=== PATIENT | female | born 1980 | race Caucasian/White ===

== ENCOUNTER 2018-05-26 16:21 | Outpatient (CLI) | payer MEDICAID, SELFPAY | END 2018-05-26 16:41 | PROVIDERS: PCP Nurse Practitioner Family; Visit Provider Advanced Practice Midwife | DX: N92.5 Other specified irregular menstruation (principal) | CPT/HCPCS: 36415; 84702 ==

== ENCOUNTER 2020-02-07 02:00 | Outpatient (CLI) | payer MEDICAID, SELFPAY ==
[2020-02-09 18:47] LABS: Patient Race White; SARS-CoV-2 RNA Undetected (Undetected); SARS-CoV-2 Specimen Source Nasopharynx
== END 2020-02-07 02:20 ==
PROVIDERS: PCP Nurse Practitioner Family; Visit Provider Nurse Practitioner Family
DX: Z11.59 Encounter for screening for other viral diseases (principal)
CPT/HCPCS: U0003

== ENCOUNTER 2020-02-14 02:47 | Outpatient (CLI) | payer MEDICAID, SELFPAY ==
[2020-02-14 16:52] LABS: Abs Immature Grans 0.03 10^3/uL (0.0-0.06); Absolute Basophil Count 0.04 10^3/uL (0.0-0.2); Absolute Lymphocyte Count 3.25 10^3/uL (1.2-3.4); Absolute Monocyte Count 0.47 10^3/uL (0.1-0.8); Absolute Neutrophil Count 3.09 10^3/uL (1.2-6.7); Basophils % 0.6; Eosinophils % 2.8; HGB 13.9 g/dL (11.2-15.7); Immature Grans % 0.4; Lymphocytes % 45.9; MCH 30.9 pg (27.0-33.0); MCHC 33.9 % (32.0-36.0); MCV 91.1 fL (80-95); MPV 9.4 fL (8.0-11.0); Monocytes % 6.6; Neutrophils % 43.7; Nucleated RBC 0 %; Platelet Count 276 10^3/uL (130-400); RDW 11.9 % (11.7-14.6); RDW-SD 39.9 fL; WBC 7.08 10^3/uL (4.4-10.8)
[2020-02-14 16:58] LABS: Bilirubin Negative (Negative); Blood Negative (Negative); Clarity Clear (Clear); Glucose Negative (Negative); Ketones Negative (Negative); Leukocyte Esterase Negative (Negative); Nitrite Negative (Negative); Urobilinogen 0.2 EU/dL (Up TO 0.2)
[2020-02-14 17:34] LABS: ESR 10 mm/hr (0-20)
[2020-02-14 17:53] LABS: ALT 22 U/L (14-59); AST 16 U/L (15-37); Albumin 3.9 g/dL (3.4-5.0); Alkaline Phosphatase 80 U/L (46-116); Anion Gap 8.7 mmol/L (3-11); BUN 20 mg/dL (7-18); Bilirubin, Total 0.2 mg/dL (0.2-1.0); C-Reactive Protein 0.15 mg/dL (0.0-0.3); CO2 27.3 mmol/L (21.0-32.0); CREATININE 0.73 mg/dL (0.55-1.02); Calcium 9.3 mg/dL (8.5-10.1); Chloride 104 mmol/L (98-107); Glucose 96 mg/dL (74-106); Sodium 140 mmol/L (136-145); Total Protein 7.2 g/dL (6.4-8.2); Uric Acid 4.3 mg/dL (2.6-6.0)
[2020-02-15 17:05] LABS: Rheumatoid Factor <8.6 IU/mL (<12.0)
[2020-02-16 09:32] LABS: Cyclic Citrullinated Peptide <2.5 U/mL (<5.0)
[2020-02-16 11:01] LABS: Lyme Ab w Rflx to Lyme Confirm Negative (Negative)
[2020-02-17 20:33] LABS: Anaplasma phagocytophilum Negative (Negative); B. miyamotoi PCR Negative (Negative); Babesia divergens/MO-1 Negative (Negative); Babesia duncani Negative (Negative); Babesia microti Negative (Negative); Ehrlichia chaffeensis Negative (Negative); Ehrlichia ewingii/canis Negative (Negative); Ehrlichia muris eauclairensis Negative (Negative)
== END 2020-02-14 03:07 ==
PROVIDERS: PCP Nurse Practitioner Family; Visit Provider Nurse Practitioner Family
DX: M25.562 Pain in left knee (principal); M25.561 Pain in right knee; M25.522 Pain in left elbow; M25.521 Pain in right elbow; M25.572 Pain in left ankle and joints of left foot; M25.571 Pain in right ankle and joints of right foot; M25.541 Pain in joints of right hand; M25.542 Pain in joints of left hand
CPT/HCPCS: 36415; 80053; 85652; 86200; 87798; 81003; 84550; 85025; 86140; 86431; 86618

== ENCOUNTER 2020-03-19 11:13 | Emergency (ER) | payer MEDICAID, SELFPAY ==
[2020-03-19] VITALS (32 sets, daily range): BP systolic 101–115; BP diastolic 62–81; PULSE 67–97; RESP 11–25; TEMP 36.9; O2SAT 95–100
--- NOTE | 2020-03-19 11:15 | RT.EKG_ITS ---
APPROVED REPORT Exam: Resting ECG Patient Location: E HR:80 bpm ECG Measurements Heart Rate 80 AXIS UT 137 P 67 QRSd 79 QRS 63 QT 370 T 36 QTc 427 Conclusion Sinus rhythm...normal P axis, V-rate 60- 99
--- NOTE | 2020-03-19 11:45 | DI.RAD_ITS ---
EXAM: XR PORTABLE CHEST AP CLINICAL HISTORY: chest pain TECHNIQUE: 2D digital imaging was performed. COMPARISON: No exams were available for comparison FINDINGS: MEDIASTINUM: Normal. HEART: Normal. PULMONARY VASCULATURE: Normal. LUNGS: Clear. PLEURAL SPACE: No pleural effusion or pneumothorax. BONE:Within normal limits for the patient's age. OTHER FINDINGS:Normal. IMPRESSION: No acute pulmonary findings. DATA REPOSITORY: RADIATION DOSE DELIVERED:
[2020-03-19 11:54] LABS: Abs Immature Grans 0.02 10^3/uL (0.0-0.06); Absolute Basophil Count 0.05 10^3/uL (0.0-0.2); Absolute Eosinophil Count 0.17 10^3/uL (0.0-0.7); Absolute Lymphocyte Count 2.85 10^3/uL (1.2-3.4); Absolute Neutrophil Count 4.53 10^3/uL (1.2-6.7); Basophils % 0.6; Eosinophils % 2.1; HCT 42.4 % (36.0-46.0); HGB 14.3 g/dL (11.2-15.7); Immature Grans % 0.2; Lymphocytes % 35.1; MCH 30.8 pg (27.0-33.0); MCHC 33.7 % (32.0-36.0); MCV 91.4 fL (80-95); MPV 9.3 fL (8.0-11.0); Monocytes % 6.2; Neutrophils % 55.8; Nucleated RBC 0 %; Platelet Count 305 10^3/uL (130-400); RBC 4.64 10^6/uL (3.93-5.22); RDW 12.2 % (11.7-14.6); RDW-SD 40.8 fL; WBC 8.12 10^3/uL (4.4-10.8)
[2020-03-19] MEDS: Normal Saline 1,000 ML 1000 ML IV (12:00)
[2020-03-19] MEDS: Normal Saline Flush 10 ML SYR IVP (12:00)
[2020-03-19 12:11] LABS: ALT 21 U/L (14-59); AST 15 U/L (15-37); Albumin 3.9 g/dL (3.4-5.0); Alkaline Phosphatase 80 U/L (46-116); Anion Gap 5.1 mmol/L (3-11); BUN 12 mg/dL (7-18); Bilirubin, Total 0.2 mg/dL (0.2-1.0); CO2 28.9 mmol/L (21.0-32.0); Calcium 8.7 mg/dL (8.5-10.1); Chloride 105 mmol/L (98-107); Glucose 95 mg/dL (74-106); Potassium 3.9 mmol/L (3.5-5.1); Sodium 139 mmol/L (136-145); TSH (W/Ref FT4) 2.06 uIU/mL (0.36-3.74); Total Protein 7.5 g/dL (6.4-8.2)
[2020-03-19 12:12] LABS: Troponin I < 0.05 ng/mL (<0.06)
[2020-03-19 12:21] LABS: D-Dimer 208 ng/mlFEU (<500)
[2020-03-19 13:13] LABS: Bilirubin Negative (Negative); Blood Negative (Negative); Clarity Clear (Clear); Glucose Negative (Negative); Ketones Negative (Negative); Leukocyte Esterase Negative (Negative); Nitrite Negative (Negative); Urobilinogen 0.2 EU/dL (Up TO 0.2)
--- NOTE | 2020-03-19 14:01 | ED.GENADUL_ITS ---
Discharge Plan Disposition Patient Disposition: HOME Condition: Stable Discharge Details Clinical Impression: Chest pain Primary Care Provider: Anjana Pierre ED Provider: Sunitha Belcher Home Meds and New Rx's Prescriptions: Continued geriatric multivitamin-min Elixir 10 - 45 ml PO DAILY RF: 0 Discharge Instructions Instructions: Chest Pain (ED) Additional Instructions: Please return immediately to the emergency department if you develop any new or worsening symptoms, if your condition does not improve as expected, or if you become otherwise concerned. It is extremely important that you call soon as possible to make an appointment to be seen in follow-up for this visit by your primary care doctor and also to have a stress test performed. The stress test has been ordered. Referrals: Anjana Pierre NP [Primary Care Provider] - Discharge Data Discharge Date/Time-TO BE ENTERED AT DEPARTURE: 03/19/20 16:20 Medical Decision Making Shanell Winn is a 39 y/o woman who presented to the emergency department with lightheadedness and chest pain, not currently occurring, non-exert onal/pleuritic/positional. Benign exam. Concern for dehydration, metabolic/lyte derangement, anemia, pulm embolism, other. Doubt acute coronary syndrome. Low risk for PE. Exam/hx at this time not c/w acute aortic process, sepsis, meningitis. Plan for EKG, screening labs, IVF hydration, telemetry. Will repeat EKG, trop in initial w/u neg. Pt not per nursing. Labs reviewed, normal WBC, neg trop, neg d-dimer. EKG non-diagnostic. Pt continues to feel on reassessment, no chest pain. Pt does note to me that she breas feeds 10x per 24 hour period, and may not have been drinking enough fluid lately. Repeat trop, EKG okay. Plan for d/c. Pt with low risk chest pain by HEART score. Outpt stress test ordered by me. Pt feels well, no symptoms. Has stood and walked about ED without lightheadedness. I had a lengthy discussion with Patient regarding return to emergency department precautions, home care, and importance of outpatient follow-up. Pt verbalizes understanding of the plan and is amenable. Patient discharged to home with clear plan for outpatient follow-up. All questions were answered. Disposition decision was made weighing the risks and benefits of hospitalization versus outpatient treatment, the risk for further decompensation, and the patient's wishes. Medical Records Medical records reviewed: Yes I reviewed the patient's medical records. Imaging Data Radiologic Study: Attestation: I personally reviewed and interpreted this imaging study as follows: Radiologist's impression: EXAM: XR PORTABLE CHEST AP CLINICAL HISTORY: chest pain TECHNIQUE: 2D digital imaging was performed. COMPARISON: No exams were available for comparison FINDINGS: MEDIASTINUM: Normal. HEART: Normal. PULMONARY VASCULATURE: Normal. LUNGS: Clear. PLEURAL SPACE: No pleural effusion or pneumothorax. BONE:Within normal limits for the patient's age. OTHER FINDINGS:Normal. IMPRESSION: No acute pulmonary findings. Lab Data Lab results reviewed: Yes I reviewed the patient's lab results. Labs: Laboratory Tests Range/Units 03/19/20 03/19/20 03/19/20 11:25 11:25 11:25 WBC (4.4-10.8) 10^3/uL 8.12 RBC (3.93-5.22) 10^6/uL 4.64 Hgb (11.2-15.7) g/dL 14.3 Hct (36.0-46.0) % 42.4 MCV (80-95) fL 91.4 MCH (27.0-33.0) pg 30.8 MCHC (32.0-36.0) % 33.7 RDW (11.7-14.6) % 12.2 Plt Count (130-400) 10^3/uL 305 MPV (8.0-11.0) fL 9.3 Immature Gran % 0.2 Neutrophils % 55.8 Lymphocytes % 35.1 Monocytes % 6.2 Eosinophils % 2.1 Basophils % 0.6 Nucleated RBC % % 0 Absolute Neutrophils (1.2-6.7) 10^3/uL 4.53 Absolute Lymphocytes (1.2-3.4) 10^3/uL 2.85 Absolute Monocytes (0.1-0.8) 10^3/uL 0.50 Absolute Eosinophils (0.0-0.7) 10^3/uL 0.17 Absolute Basophils (0.0-0.2) 10^3/uL 0.05 D-Dimer (<500) ng/mlFEU 208 Sodium (136-145) mmol/L 139 Potassium (3.5-5.1) mmol/L 3.9 Chloride (98-107) mmol/L 105 Carbon Dioxide (21.0-32.0) mmol/L 28.9 Anion Gap (3-11) mmol/L 5.1 BUN (7-18) mg/dL 12 Creatinine (0.55-1.02) mg/dL 0.70 Estimated GFR/1.73 m2 (mL/min/1.73m2) >= 60.00 Glucose (74-106) mg/dL 95 Calcium (8.5-10.1) mg/dL 8.7 Total Bilirubin (0.2-1.0) mg/dL 0.2 AST (15-37) U/L 15 ALT (14-59) U/L 21 Alkaline Phosphatase (46-116) U/L 80 Troponin I (<0.06) ng/mL < 0.05 Total Protein (6.4-8.2) g/dL 7.5 Albumin (3.4-5.0) g/dL 3.9 TSH (0.36-3.74) uIU/mL 2.06 Urine Color (Yellow) Urine Clarity (Clear) Urine pH (5-8) Ur Specific Clements (1.005-1.025) Urine Protein (Negative) mg/dL Urine Ketones (Negative) mg/dL Urine Blood (Negative) Urine Nitrite (Negative) Urine Bilirubin (Negative) Urine Urobilinogen (Up TO 0.2) EU/dL Ur Leukocyte Esterase (Negative) Urine Glucose (Negative) mg/dL Range/Units 03/19/20 03/19/20 12:59 14:39 WBC (4.4-10.8) 10^3/uL RBC (3.93-5.22) 10^6/uL Hgb (11.2-15.7) g/dL Hct (36.0-46.0) % MCV (80-95) fL MCH (27.0-33.0) pg MCHC (32.0-36.0) % RDW (11.7-14.6) % Plt Count (130-400) 10^3/uL MPV (8.0-11.0) fL Immature Gran % Neutrophils % Lymphocytes % Monocytes % Eosinophils % Basophils % Nucleated RBC % % Absolute Neutrophils (1.2-6.7) 10^3/uL Absolute Lymphocytes (1.2-3.4) 10^3/uL Absolute Monocytes (0.1-0.8) 10^3/uL Absolute Eosinophils (0.0-0.7) 10^3/uL Absolute Basophils (0.0-0.2) 10^3/uL D-Dimer (<500) ng/mlFEU Sodium (136-145) mmol/L Potassium (3.5-5.1) mmol/L Chloride (98-107) mmol/L Carbon Dioxide (21.0-32.0) mmol/L Anion Gap (3-11) mmol/L BUN (7-18) mg/dL Creatinine (0.55-1.02) mg/dL Estimated GFR/1.73 m2 (mL/min/1.73m2) Glucose (74-106) mg/dL Calcium (8.5-10.1) mg/dL Total Bilirubin (0.2-1.0) mg/dL AST (15-37) U/L ALT (14-59) U/L Alkaline Phosphatase (46-116) U/L Troponin I (<0.06) ng/mL < 0.05 Total Protein (6.4-8.2) g/dL Albumin (3.4-5.0) g/dL TSH (0.36-3.74) uIU/mL Urine Color (Yellow) Yellow Urine Clarity (Clear) Clear Urine pH (5-8) 8.0 Ur Specific Clements (1.005-1.025) 1.020 Urine Protein (Negative) mg/dL Negative Urine Ketones (Negative) mg/dL Negative Urine Blood (Negative) Negative Urine Nitrite (Negative) Negative Urine Bilirubin (Negative) Negative Urine Urobilinogen (Up TO 0.2) EU/dL 0.2 Ur Leukocyte Esterase (Negative) Negative Urine Glucose (Negative) mg/dL Negative ECG Data Attestation: I personally reviewed and interpreted this ECG (s) as follows: Interpretation: EKG shows sinus rhythm at 80, normal axis, no acute ischemic changes, nondiagnostic EKG Repeat EKG shows sinus rhythm at 74, normal axis, no major change from prior, nondiagnostic EKG HPI General Mode of arrival: ambulatory . Date/Time Provider Initiated Documentation: 03/19/20 11:15 . Limitations to Documentation: no limitations . Information obtained by: patient, RN notes reviewed and old records reviewed . HPI Narrative: Shanell Winn is a 39-year-old woman with history of IBS presenting to emergency department with lightheadedness and chest pain. Patient reports that over the past few days she has noticed feeling intermittently lightheaded as if she would faint. Patient reports that this has been occurring while seated as well as with standing, although she reports that lightheadedness has been worse while standing and she has had to sit several times because of it. Does seem to improve with sitting/lying down. Patient reports that this morning she developed retrosternal chest pain that she describes as sometimes dull, sometimes sharp. Has been intermittent and this morning. Patient reports that chest pain does not seem to have modifiers, unchanged with eating, exertion, deep breathing. Does not radiate. Patient reports that pain lasted for a few minutes and then remit. She denies any current pain or other current symptoms. She denies fevers, shortness of breath, cough, numbness, weakness, vomiting, diarrhea, rash. She reports that she has been eating and drinking as usual. States that she is currently breast-feeding her [id number] child. Related Data Home Medications Medication Instructions Recorded Confirmed geriatric multivitamin-min 10 - 45 ml PO DAILY 03/19/20 03/19/20 Allergies Allergy/AdvReac Type Severity Reaction Status Date / Time morphine Allergy Unknown Hives Verified 02/03/20 16:45 penicillin V Allergy Unknown Difficulty Verified 02/03/20 16:45 Breathing, Pruritis wheat Allergy Unknown Verified 02/03/20 16:45 Dust Allergy Unknown Uncoded 07/01/19 08:53 Raw Sugar Allergy Unknown Uncoded 07/01/19 08:53 General Stated Complaint: Chest Pain LONG: 2 Review of Systems Narrative: Constitutional: denies fevers Eyes: denies eye pain ENT: denies ear pain, dental pain, sore throat Cardiovascular: denies edema, reports chest pain, lightheadedness Respiratory: denies SOB, cough GI: denies abdominal pain, vomiting, diarrhea : denies flank pain MSK: denies back pain, neck pain, arthralgias, myalgias Skin: denies rash Neuro: denies headaches, numbness, weakness [facility] Medical History (Updated 03/19/20 @ 15:54 by Sunitha Belcher MD) Fracture of glenoid process of right scapula (~05/2018) IBS (irritable bowel syndrome) Colonoscopy 2003 - WNL Colonoscopy was scheduled for 2012, pt never did it, but hasn't had flare of sx since then Diarrhea predominant Right scapula fracture (07/2018) Surgical History H/O sinus surgery 2000, to remove polyps Family History Brother IBS (irritable bowel syndrome) Father Hypertension Hypercholesteremia Maternal Grandfather Heart disease Maternal Grandmother IBS (irritable bowel syndrome) Osteoporosis Mother IBS (irritable bowel syndrome) Osteoarthritis Social History Smoking/Tobacco Use Status: Never Smoking risk assessment performed?: Yes Alcohol Intake: never Drug use: Never Substance use type: does not use Household members: spouse and children Number of Children: 2 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 Pets and animals: No Sexually active: Yes Current gender identity: female What type of physical activity do you participate in: aerobic and regular exercise Frequency: 3-4 times per week Seatbelt use: always Drive intox or ride w/intox hammer driver: No Working smoke detector in home: Yes Do you feel safe at home: Yes Do you feel safe in your relationship?: Yes Exam Narrative Exam Narrative: Constitutional: well and [id number], pleasant, conversing normally HENT: head atraumatic/normocephalic/normal inspection, mucous membranes moist Eyes: conjunctiva normal, sclera normal, pupils 3mm b/l Neck: no stridor, normal ROM, trachea midline Chest: normal inspection Resp: normal work of breathing, LCTAB Cardio: normal rate, normal rhythm, no murmur appreciated GI: abdomen soft, non-tender, non-distended Back: normal inspection, no rash Skin: warm, dry, normal color, no rash Neuro: alert, not altered, grossly non-focal, normal tone Ext: no edema Psych: normal mood, normal affect, normal behavior Course Vital Signs Vital signs: Vital Signs Temperature 36.9 C 03/19/20 11:18 Pulse 70 03/19/20 11:18 Respiratory Rate 11 L 03/19/20 11:18 Blood Pressure 115/81 03/19/20 11:18 Pulse Oximetry 98 03/19/20 11:18 Temperature 36.9 C 03/19/20 11:18 Temperature Source Temporal Artery Scan 03/19/20 11:18 Pulse 75 03/19/20 12:46 Pulse 81 03/19/20 12:50 Respiratory Rate 22 03/19/20 12:50 Respiratory Effort Non-Labored 03/19/20 11:27 Respiratory Depth Normal 03/19/20 11:27 Respiratory Pattern Normal 03/19/20 11:27 Blood Pressure 103/68 03/19/20 12:46 Blood Pressure Mean 76 03/19/20 12:46 Blood Pressure Position Sitting 03/19/20 11:18 Pulse Oximetry 98 03/19/20 12:50 Oxygen Delivery Method Room Air 03/19/20 11:18 Oxygen Flow Rate 0 03/19/20 11:18 Pain Level 3 03/19/20 11:27 Lab/Test Results Lab/Test Results: Laboratory Tests Range/Units 03/19/20 03/19/20 03/19/20 11:25 11:25 11:25 WBC (4.4-10.8) 10^3/uL 8.12 RBC (3.93-5.22) 10^6/uL 4.64 Hgb (11.2-15.7) g/dL 14.3 Hct (36.0-46.0) % 42.4 MCV (80-95) fL 91.4 MCH (27.0-33.0) pg 30.8 MCHC (32.0-36.0) % 33.7 RDW (11.7-14.6) % 12.2 Plt Count (130-400) 10^3/uL 305 MPV (8.0-11.0) fL 9.3 Immature Gran % 0.2 Neutrophils % 55.8 Lymphocytes % 35.1 Monocytes % 6.2 Eosinophils % 2.1 Basophils % 0.6 Nucleated RBC % % 0 Absolute Neutrophils (1.2-6.7) 10^3/uL 4.53 Absolute Lymphocytes (1.2-3.4) 10^3/uL 2.85 Absolute Monocytes (0.1-0.8) 10^3/uL 0.50 Absolute Eosinophils (0.0-0.7) 10^3/uL 0.17 Absolute Basophils (0.0-0.2) 10^3/uL 0.05 D-Dimer (<500) ng/mlFEU 208 Sodium (136-145) mmol/L 139 Potassium (3.5-5.1) mmol/L 3.9 Chloride (98-107) mmol/L 105 Carbon Dioxide (21.0-32.0) mmol/L 28.9 Anion Gap (3-11) mmol/L 5.1 BUN (7-18) mg/dL 12 Creatinine (0.55-1.02) mg/dL 0.70 Estimated GFR/1.73 m2 (mL/min/1.73m2) >= 60.00 Glucose (74-106) mg/dL 95 Calcium (8.5-10.1) mg/dL 8.7 Total Bilirubin (0.2-1.0) mg/dL 0.2 AST (15-37) U/L 15 ALT (14-59) U/L 21 Alkaline Phosphatase (46-116) U/L 80 Troponin I (<0.06) ng/mL < 0.05 Total Protein (6.4-8.2) g/dL 7.5 Albumin (3.4-5.0) g/dL 3.9 TSH (0.36-3.74) uIU/mL 2.06 Urine Color (Yellow) Urine Clarity (Clear) Urine pH (5-8) Ur Specific Clements (1.005-1.025) Urine Protein (Negative) mg/dL Urine Ketones (Negative) mg/dL Urine Blood (Negative) Urine Nitrite (Negative) Urine Bilirubin (Negative) Urine Urobilinogen (Up TO 0.2) EU/dL Ur Leukocyte Esterase (Negative) Urine Glucose (Negative) mg/dL Range/Units 03/19/20 12:59 WBC (4.4-10.8) 10^3/uL RBC (3.93-5.22) 10^6/uL Hgb (11.2-15.7) g/dL Hct (36.0-46.0) % MCV (80-95) fL MCH (27.0-33.0) pg MCHC (32.0-36.0) % RDW (11.7-14.6) % Plt Count (130-400) 10^3/uL MPV (8.0-11.0) fL Immature Gran % Neutrophils % Lymphocytes % Monocytes % Eosinophils % Basophils % Nucleated RBC % % Absolute Neutrophils (1.2-6.7) 10^3/uL Absolute Lymphocytes (1.2-3.4) 10^3/uL Absolute Monocytes (0.1-0.8) 10^3/uL Absolute Eosinophils (0.0-0.7) 10^3/uL Absolute Basophils (0.0-0.2) 10^3/uL D-Dimer (<500) ng/mlFEU Sodium (136-145) mmol/L Potassium (3.5-5.1) mmol/L Chloride (98-107) mmol/L Carbon Dioxide (21.0-32.0) mmol/L Anion Gap (3-11) mmol/L BUN (7-18) mg/dL Creatinine (0.55-1.02) mg/dL Estimated GFR/1.73 m2 (mL/min/1.73m2) Glucose (74-106) mg/dL Calcium (8.5-10.1) mg/dL Total Bilirubin (0.2-1.0) mg/dL AST (15-37) U/L ALT (14-59) U/L Alkaline Phosphatase (46-116) U/L Troponin I (<0.06) ng/mL Total Protein (6.4-8.2) g/dL Albumin (3.4-5.0) g/dL TSH (0.36-3.74) uIU/mL Urine Color (Yellow) Yellow Urine Clarity (Clear) Clear Urine pH (5-8) 8.0 Ur Specific Clements (1.005-1.025) 1.020 Urine Protein (Negative) mg/dL Negative Urine Ketones (Negative) mg/dL Negative Urine Blood (Negative) Negative Urine Nitrite (Negative) Negative Urine Bilirubin (Negative) Negative Urine Urobilinogen (Up TO 0.2) EU/dL 0.2 Ur Leukocyte Esterase (Negative) Negative Urine Glucose (Negative) mg/dL Negative POC- Test(urine) Negative
--- NOTE | 2020-03-19 14:15 | RT.EKG_ITS ---
APPROVED REPORT Exam: Resting ECG Patient Location: E HR:74 bpm ECG Measurements Heart Rate 74 AXIS KS 144 P 37 QRSd 80 QRS 63 QT 376 T 29 QTc 417 Conclusion Sinus rhythm...normal P axis, V-rate 60- 99 no STEMI, non-diagnostic EKG
[2020-03-19 15:46] LABS: Troponin I < 0.05 ng/mL (<0.06)
== END 2020-03-19 16:20 | disposition home or self-care (01) ==
PROVIDERS: Emergency Provider Student in an Organized Health Care Education/Training Program; PCP Nurse Practitioner Family
DX: R42 Dizziness and giddiness (principal); R07.89 Other chest pain
CPT/HCPCS: 36415; 36416; 80053; 81025; 82962; 93005; 96360; 99285; 71045; 81003; 84443; 84484; 85025; 85379; 93010; 93225; 99284

== ENCOUNTER 2020-03-28 13:01 | Outpatient (CLI) | payer MEDICAID, SELFPAY ==
--- NOTE | 2020-03-28 15:14 | W.HOLTRPT ---
Date of service: 03/28/20 Time of Service: 15:15 Holter Monitor Report Referring Provider:: Anjana Pierre Indications:: Palpitations Holter Monitor Note: This is a 48-hour Holter monitor Rhythm throughout was sinus. Average heart rate was 90. Minimum heart rate was 60, maximum 131 No significant dysrhythmias were recorded. There was 1 isolated PVC, 4 atrial premature beats There was no atrial fibrillation, high-grade AV block or pauses greater than 3 seconds Patient symptoms corresponded to sinus rhythm
== END 2020-03-28 13:21 ==
PROVIDERS: PCP Nurse Practitioner Family; Visit Provider Nurse Practitioner Family
DX: R00.2 Palpitations (principal); I49.3 Ventricular premature depolarization; I49.1 Atrial premature depolarization
CPT/HCPCS: 93226

== ENCOUNTER 2021-12-20 01:36 | Outpatient (CLI) | payer MEDICAID, SELFPAY ==
--- OUTSIDE RECORDS SUMMARY | 2021-12-20 01:39 | XMS_ITS | Clinical Summary ---
:1980 Author Organization [facility] [place] [address] Care Team Providers Name Role Phone Anjana Pierre ANGELA Primary Care Provider Allergies Active Allergy Reactions Severity Noted Date Comments Morphine Sulfate Medium CIS - Hives Penicillins Anaphylaxis High 11/16/2012 Sugars, Metabolically Other (See Comments) 07/18/2016 Headaches, sore Active throat, muscle aches Wheat Bran Low CIS - Allergic Rhinitis Wheat Flour Low CIS - Allergic Rhinitis Wheat Germ Oil Low CIS - Allergi c Rhinitis Wheat Starch Low CIS - Allergic Rhinitis Medications Medication Sig Dispensed Refills Start Date End Date Status Ibuprofen 200 mg Cap 0 06/26/2009 Active PNV CMB#95/FERROUS Take 1 tablet by 0 Active FUMARATE/FA ( mouth daily. MULTIVITAMINS ORAL) ASCORBATE CALCIUM Take by mouth as 0 Active (VITAMIN C ORAL) needed. acetaminophen (TYLENOL) Take 1,000 mg by 0 Active 500 mg tablet mouth as needed. Reported on 07/18/2016 ELDERBERRY FRUIT ORAL Take by mouth. 0 Active Active Problems Problem Noted Date Diarrhea 11/16/2012 Immunizations Name Administration Dates Next Due Hepatitis A Vaccine, unspecified formulation 06/26/2009 Tdap Vaccine 06/26/2009 Social History Tobacco Use Types Packs/Day Years Used Date Never Smoker Sex Assigned at Date Recorded Not on file Last Filed Vital Signs Vital Sign Reading Time Taken Comments Blood Pressure 114/78 07/18/2016 2:49 PM EST Pulse 106 11/16/2012 8:13 AM EDT Temperature - - Respiratory Rate - - Oxygen Saturation - - Inhaled Oxygen Concentration - - Weight 67.8 kg (149 lb 8 oz) 07/18/2016 2:49 PM EST Height 157.5 cm (5' 2) 11/16/2012 8:13 AM EDT Body Mass Index 27.34 11/16/2012 8:13 AM EDT Plan of Treatment Health Maintenance Due Date Last Done Comments Covid-19 Vaccine (#1) 1986 HIV screen 12/30/1999 Hepatitis C Screening 12/30/1999 HPV test 12/30/2011 PAP Smear 12/30/2011 Tetanus vaccine 06/26/2019 06/26/2009 Influenza (Flu) vaccine (1 of 1 - Influenza standard 01/16/2022 series) Tdap adult Completed 06/26/2009 Insurance Payer Benefit Plan / Subscriber ID Effective Dates Phone Addre ss Type Group [place]ICAID [place] [id number] 2021-Prese [phone] [address] [facility] [address] [place], [place] [phone] Care Teams Burlap Spreader Relationship Specialty Start Date End Date Anjana Pierre, SUPPLIER SPECIALIST PCP - General Family Medicine 01/26/21 [address] [place] [address]
--- OUTSIDE RECORDS SUMMARY | 2021-12-20 01:39 | XMS_ITS | Encounter Summary ---
:1980 [place] [address] Care Team Providers Name Role Phone Vlad Garcia MD Primary Care Provider Encounter Details Date Type Department Care Team Description 08/01/2016 Telephone Obstetrics and Gynecology [place] [address] Social History Tobacco Use Types Packs/Day Years Used Date Never Smoker Sex Assigned at Date Recorded Not on file documented as of this encounter Miscellaneous Notes Telephone Encounter - Sienna Reddy RN - 08/06/2016 3:43 PM EDT Opened in error documented in this encounter Plan of Treatment Not on filedocumented as of this encounter Visit Diagnoses Not on filedocumented in this encounter Care Teams Bow Rehairer Relationship Specialty Start Date End Date Vlad Garcia MD PCP - General 09/21/12 01/25/21 documented as of this encounter
--- OUTSIDE RECORDS SUMMARY | 2021-12-20 01:40 | XMS_ITS | Encounter Summary ---
:1980 Author Organization [facility] Address [address] [place] [address] Care Team Providers Name Role Phone Md JEREMIAH Oconnell Primary Care Provider Unavailable Encounter Details Date Type Department Care Team Description 03/20/2010 Results Only [facility] Chanelle Scott PA Laboratory Services - [address] [facility] ,[facility] [address] [address] [phone] Social History Tobacco Use Types Packs/Day Years Used Date Never Assessed Sex Assigned at Date Recorded Not on file documented as of this encounter Plan of Treatment Not on filedocumented as of this encounter Procedures Procedure Name Priority Date/Time Associated Diagnosis Comme nts CYTOPATHOLOGY Routine 03/20/2010 0:00 EDT Results for this procedure are i n the results section . documented in this encounter Results CYTOPATHOLOGY (03/20/2010 0:00 EDT) Pathology Report: CYTOPATHOLOGY REPORT ? [facility] ? LAB Reports generated via [employer] interface contain original data; ? however they are lacking the format of the original report. ? Caution should be taken when reading/interpreting unformatted reports. ? Name: ? KWABENASHANELL ? Accession #: ? [id number] ? : ? 1980 (Age: 29) ??F ?Collect Date: ? 03/20/2010 ? Location: ? [facility] ? Receive Date: ? 03/21/2010 ? Provider: ?JANETH ROSA ? Copy to: ? Specimen/Source: ? Pap Test, Endocervix, ThinPrep Imaging System with ? manual evaluation ? Last Menstrual Period: ? 02/17/2010 ? Other: ? Additional clinical informat ion: B[facility] [employer] clinical and treatment history: uterine ? polydrend ? SPECIMEN ADEQUACY ? Satisfactory for Eval uation ? - transformation zone compon ent present ? GENERAL CATEGORIZATION ? Negative for Intraepi thelial Lesion or Malignancy ? Document reviewed and electr onically signed by: ? Lynan Tone, CT(ASCP) ? Report Date: ??11/08/ 2010 10:52 ? End of Report ? Specimen Performing Organization Address City/State/[facility] Code Phon e Number [facility] [address] [place] [address] SERVICES [facility] [address] [place] [address] documented in this encounter Visit Diagnoses Not on filedocumented in this encounter Care Teams Window Glazier Helper Relationship Specialty Start Date End Date Md Oconnell MD PCP - General 03/21/10 documented as of this encounter
--- OUTSIDE RECORDS SUMMARY | 2021-12-20 01:40 | XMS_ITS | Clinical Summary ---
:1980 Author Organization [facility] Address [address] [place] [address] Care Team Providers Name Role Phone Md JEREMIAH Oconnell Primary Care Provider Unavailable Social History Tobacco Use Types Packs/Day Years Used Date Never Assessed Sex Assigned at Date Recorded Not on file Plan of Treatment Not on file Care Teams Engine Monitor Relationship Specialty Start Date End Date Md Oconnell MD PCP - General 03/21/10
--- OUTSIDE RECORDS SUMMARY | 2021-12-20 01:40 | XMS_ITS | Encounter Summary ---
:1980 Author Organization [facility] Address [facility] [address] [place] [address] Care Team Providers Name Role Phone Vlad Garcia MD Primary Care Provider Reason for Referral (Routine) - Specialty Diagnoses / Procedures Referred By Contact Refer red To Contact Diagnoses History of recurrent miscarriages, not currently Urszula Bearden MD Procedures Chromosome Analysis, Congenital [facility] [place] [address] Referral ID Status Reason Start Date Expiration Date Visits V isits Requested Authorized [id number] 07/18/2016 07/18/2017 1 1 Reason for Visit Reason Comments Establish Care prev preg loss Consultation (Routine) - Closed Specialty Diagnoses / Procedures Referred By Contact Refer red To Contact Genetics / Obstetrics Diagnoses HX OF LOSS Scott Saravia MD [facility] [address] [employer] 5l and Gynecology Procedures GENETIC CONSULT [address] [place] [address] [place] [address] Phone: Fax: Referral ID Status Reason Start Date Expiration Date Visits Requ ested Visits Authorized [id number] Closed 06/23/2016 06/23/2017 1 1 Encounter Details Date Type Department Care Team Description 07/18/2016 Office Visit Obstetrics and Urszula Bearden MD History of recurrent Gynecology at [facility] miscarriages, not [facility] [address] OBSTETRICS & [place], [place] GYNECOLOGY [address] [place] [address] [phone] Social History Tobacco Use Types Packs/Day Years Used Date Never Smoker Sex Assigned at Date Recorded Not on file documented as of this encounter Last Filed Vital Signs Vital Sign Reading Time Taken Comments Blood Pressure 114/78 07/18/2016 2:49 PM EST Pulse - - Temperature - - Respiratory Rate - - Oxygen Saturation - - Inhaled Oxygen Concentration - - Weight 67.8 kg (149 lb 8 oz) 07/18/2016 2:49 PM EST Height - - Body Mass Index 27.34 11/16/2012 8:13 AM EDT documented in this encounter Progress Notes Urszula Bearden MD - 07/18/2016 3:00 PM EST Sister with 2 miscarriages Maternal Medicine Consult Note Shanell Winn is a 35 y.o. 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 The patient has had 2 term pregnancies followed by 3 first trimester miscarriages and a 17 week miscarriage. 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 Years ago she had a hysteroscopy for endometrial polyps. The 17 week loss was on 08/12/15. She had had painful contractions and vaginal bleeding. The fetus apparently looked grossly normal. An autopsy was not offered. She did not have a karyotype with any of the other miscarriages. Record Review No additional issues Past Medical History: Diagnosis Date ??? IBS (irritable bowel syndrome) unsure if there may be a compenent of inflammatory bowel disease Past Surgical History: Procedure Laterality Date ??? HYSTEROSCOPY 2008 endometrial polyps ??? ORTHOPEDIC SURGERY Right remove cyst from ankle ??? SINUS SURGERY Obstetric History T2 TAB0 SAB4 E0 M0 L4 # Outcome Date GA Lbr Ryan/2nd Weight Sex Delivery Anes PTL Lv 6 SAB 05/12/16 4w0d 5 08/15/15 17w0d 4 2015 4w0d 3 2014 7w0d 2 Term 04/11/13 40w0d 2.948 kg (6 lb 8 oz) F Vag-Spont Y 1 Term 02/06/11 42w0d 3.572 kg (7 lb 14 oz) M Vag-Spont Y A family history was obtained. A sister had several miscarriages. There is no other history of structural abnormalities, inheritable disease, learning disability,intellectual disability, epilepsy, or repetitive loss. The ethnic backgrounds do not suggest a significantly increased genetic risk. No member of her family has had venous thrombosis. Social: No illicit substance use or alcohol No tobacco use Current Outpatient Prescriptions Medication Sig Dispense Refill ??? ELDERBERRY FRUIT ORAL Take by mouth. ??? PNV CMB#95/FERROUS FUMARATE/FA ( MULTIVITAMINS ORAL) Take 1 tablet by mouth daily. ??? ASCORBATE CALCIUM (VITAMIN C ORAL) Take by mouth as needed. ??? acetaminophen (TYLENOL) 500 mg tablet Take 1,000 mg by mouth as needed. Reported on 07/18/2016 ??? Ibuprofen 200 mg Cap (Patient not taking: No sig reported) No current facility-administered medications for this visit. Allergies Allergen Reactions ??? Penicillins Anaphylaxis ??? Morphine Sulfate CIS - Hives ??? Sugars, Metabolically Active Other (See Comments) Headaches, sore throat, muscle aches ??? Wheat Bran CIS - Allergic Rhinitis ??? Wheat Flour CIS - Allergic Rhinitis ??? Wheat Germ Oil CIS - Allergic Rhinitis ??? Wheat Starch CIS - Allergic Rhinitis Review of Systems Constitutional: generally well Physical Exam Vitals: 07/18/16 1449 BP: 114/78 General: alert, well appearing, in no apparent distress HEENT: normocephalic, atraumatic Neurologic:alert, oriented, normal speech Psychiatric: affect is appropriate. Assessment and Recommendations: 35 y.o. at with unexplained repetitive miscarriage. She has an inherited thrombophilia, but this is unlikely to be the etiology. She has had a hysteroscopy which presumably would have excluded a mullerian abnormality. She seems not to have a contributing medical condition. I recommended that we obtain testing for anti phopholipid antibody syndrome (lupus anticoagulant, anticardiolipin antibodies), TSH, HbA1c, TSH, thyroid peroxidase antibodies and a maternal karyotype. If all this is normal,we should do the father of the babies karyotype. I asked her to obtain the operative note from her hy steroscopy. If this cannot be found, a sonohysterogram is indicated. Prothrombin gene mutation. She will not need thromboprophylaxis during . After delivery herman need Lovenox for 6 weeks if she has an additional risk factor: bedrest and section. I appreciate the opportunity to be involved in this patient's care and am available if further questions should arise. Urszula Bearden MD 07/20/2016 Cc: Scott Saravia MD This was a 30 minute encounter 25 minutes of which was face to face consultation regarding her history and need for further evaluation documented in this encounter Plan of Treatment Not on filedocumented as of this encounter Procedures Procedure Name Priority Date/Time Associated Comments Diagnosis LUPUS ANTICOAGULANT Routine 07/18/2016 4:00 PM History of Re sults for this EST recurrent procedure are i n miscarriages, not the result s currently section. THYROID PEROXIDASE Routine 07/18/2016 4:00 PM History of Res ults for this ANTIBODY EST recurrent procedure are i n miscarriages, not the result s currently section. CARDIOLIPIN ANTIBODY Routine 07/18/2016 4:00 PM History of R esults for this SCREEN EST recurrent procedure are i n miscarriages, not the result s currently section. TSH Routine 07/18/2016 4:00 PM History of Results f or this EST recurrent procedure are i n miscarriages, not the result s currently section. HEMOGLOBIN A1C Routine 07/18/2016 4:00 PM History of Results for this EST recurrent procedure are i n miscarriages, not the result s currently section. CHROMO REPORT Routine 07/18/2016 3:50 PM History of Results for this CONGENITAL EST recurrent procedure are i n miscarriages, not the result s currently section. CHROMOSOME ANALYSIS, Routine 07/18/2016 3:50 PM History of CONGENITAL EST recurrent miscarriages, not currently documented in this encounter Results Cardiolipin Antibody Screen (07/18/2016 4:00 PM EST) P athologist Signature Cardiolipin IgG <23 <=22 GPL [facility](s) [facility] Comment: Ranges ? GPL ------- ? ------ Normal ?<23 Low Positive ? 23-35 Moderate Positive ?36 -50 High Positive ? >5 0 Cardiolipin IgM <11 <=10 MPL unit(s) [facility] Comment: Ranges ?MPL ----- ?----- Normal ?<11 Low Positive ? 11-20 Moderate Positive ?21 -30 High Positive ? >3 0 Specimen Anatomical Collection Method Collection Time Receive d Time (Source) Location / / Volume Laterality Blood specimen 07/18/2016 4:00 PM 017 7:40 (specimen) EST AM EST Resulting Agency Comment Spec In Lab Urszula Bearden MD IMMUNOLOGY ORDERABLES Performing Organization Address City/[facility] [place] [address] Lupus Anticoagulant (07/18/2016 4:00 PM EST) P athologist Signature Lupus Anticoag Neg Neg [facility] Specimen Anatomical Collection Method Collection Time Receive d Time (Source) Location / / Volume Laterality Blood specimen 07/18/2016 4:00 PM 017 4:10 (specimen) EST PM EST Resulting Agency Comment Spec In Lab Urszula Bearden MD HEMATOLOGY ORDERABLES Performing Organization Address City/[facility] [place] [address] TSH (07/18/2016 4:00 PM EST) athologist Signature TSH 2.50 0.27 - 4.20 [facility] Specimen Anatomical Collection Method Collection Time Receive d Time (Source) Location / / Volume Laterality Blood specimen 07/18/2016 4:00 PM 017 4:10 (specimen) EST PM EST Resulting Agency Comment Spec In Lab Urszula Bearden MD CHEMISTRY ORDERABLES Performing Organization Address City/[facility]/ZIP [place] [address] Thyroid peroxidase antibody (07/18/2016 4:00 PM EST) athologist Signature Thyroperox Ab <10 <=34 IU/mL [facility] Specimen Anatomical Collection Method Collection Time Receive d Time (Source) Location / / Volume Laterality Blood specimen 07/18/2016 4:00 PM 017 7:40 (specimen) EST AM EST Resulting Agency Comment Spec In Lab Urszula Bearden MD IMMUNOLOGY ORDERABLES Performing Organization Address City/[facility] [place] [address] Hemoglobin A1c (07/18/2016 4:00 PM EST) athologist Signature Hemoglobin A1C 5.0 4.3 - 5.6 [facility] Comment: Reference Range: 4.3 - 5.6% 5.7 - 6.4% - Increased Risk of Developin g Diabetes Mellitus >=6.5% - Consistent with diagnosis of Di abetes Mellitus In the absence of hyperglycemia (i.e. pl asma glucose > 200 mg/dL) or classic symptoms of hyperglycemia a repeat measu rement of HbA1c should be performed on a separate sample to confirm the diagnos is. Diagnosis and Classification of Diabetes Mellitus, Diabetes Care 2013; 36: Suppl. 1, N27-59 Est Avg Gluc 97 mg/dL [facility] Comment: eAG equivalents for HbA1c percentages: HbA1c(%) ?eAG(mg/dL) 6.0 ?126 6.5 ?140 7.0 ?154 7.5 ?169 8.0 ?183 8.5 ?197 9.0 ?212 9.5 ?226 10.0 ? 240 Limitations: The eAG calculation has not been validated on women, individuals below 18 years old and above 70 years old, and individuals with hemoglobinopathies. Additional resources are available on [facility] website: http://[employer] Wolfgang BARNEY, Osman J, Korina R, et al. ??Tr anslating the A1C assay into estimated average glucose values. ??Diabetes Care 2008:31(8):8063-3414. Specimen Anatomical Collection Method Collection Time Receive d Time (Source) Location / / Volume Laterality Blood specimen 07/18/2016 4:00 PM 017 4:10 (specimen) EST PM EST Resulting Agency Comment Spec In Lab Urszula Bearden MD CHEMISTRY ORDERABLES Performing Organization Address City/State/ZIP Code Phon e [place] [address] chromo report congenital (07/18/2016 3:50 PM EST) Component Value Ref Test Analysis Performed At [facility] Range Method Time Signature Cytogenetics Final Report CHAZ GARCES Report [facility] Specimen: Blood LABORATORY Specimen Condition: ~ 7.5 mls Collection Date/Time: 07/18/2016 16:00 Received Date/Time: 07/22/2016 11:00 Indication for Study: ??Multiple Miscarriages ---Results--- Normal female karyotype. ---Karyotype--- 46,XX ---Preparation--- Culture Type: 72 hour PHA-stimulated blood culture Days in Culture: 3 Banding Method: G-banding Banding Level: 550 bands ---Analysis--- Cultures Analyzed: 2 Metaphase Cells Counted: 20 Metaphase Cells Analyzed: ??5 Metaphase Cells Karyotyped: ??3 ---Interpretation--- Cytogenetic analysis revealed a normal f emale karyotype of 46,XX. No numerical and major structural abnormalities were observed. The specimen was referred to [facility] ([place], [place], Tel: ) for cytogenetic analysis. Please see scanned report in Chart Review under the Non- Laboratory heading for further details. ---Comments--- The routine banded chromosome analysis u tilized in this assay usually does not detect subtle structural abnormalities and submi croscopic aberrations such as microdeletions and microduplications or low level of mosaici sm. These abnormalities may be detected by molecular techniques such a s chromosomal microarray and fluorescence in situ hybridization (FIS H). Please consult the laboratory or other healthcare providers for appropriate yina ting strategy. 03.15.17 (Electronic Signature) Verified By: Stef DANIELS, Ph.D., [facility] [place] Director, Cytogenetics Specimen (Source) Anatomical Collection Method Collection Time Re ceived Time Location / / Volume Laterality 07/18/2016 3:50 PM EST Urszula Bearden MD HEMATOLOGY ORDERABLES Performing Organization Address City/State/ZIP [place] [address] documented in this encounter Visit Diagnoses Diagnosis History of recurrent miscarriages, not c urrently Recurrent loss without current documented in this encounter Care Teams Crosscutter Relationship Specialty Start Date End Date Vlad Garcia MD PCP - General 09/21/12 01/25/21 documented as of this encounter
--- OUTSIDE RECORDS SUMMARY | 2021-12-20 01:40 | XMS_ITS | Encounter Summary ---
:1980 Author Organization [facility] Address [address] [place] [address] Care Team Providers Name Role Phone Md JEREMIAH Oconnell Primary Care Provider Unavailable Encounter Details Date Type Department Care Team Description 09/20/2012 Results Only [facility], Laboratory Services - [address] [place] [address] [place], [place] [id number] [phone] Social History Tobacco Use Types Packs/Day Years Used Date Never Assessed Sex Assigned at Date Recorded Not on file documented as of this encounter Plan of Treatment Not on filedocumented as of this encounter Procedures Procedure Name Priority Date/Time Associated Diagnosis Comme nts PAP TEST- RESULT Routine 09/20/2012 0:00 EDT Resu lts for this ONLY procedure are i n the results section. documented in this encounter Results PAP TEST- RESULT ONLY (09/20/2012 0:00 EDT) Pathology Report: CYTOPATHOLOGY REPORT [facility] Reports generated via electronic interface contain tonny ginal data; however they are lacking the format of the original re port. Caution should be taken when reading/interpreting unfo rmatted reports. Name: ? SHANELL YUAN ? Accession #: ? [id number] ? : ? 1980 (Age: 31) ??F ?Collect Da te: ? 09/20/2012 ? Location: ? [facility] ? Receive Date: ? 013 ? Provider: [facility] Copy to: ? Final Report SPECIMEN ADEQUACY ? Satisfactory for Evaluation - transformation zone component present GENERAL CATEGORIZATION ? Negative for Intraepithelial Lesion or Malignan cy ?? Last Menstrual Period: 07/05/12 Specimen/Source: ??Pap Test, Cervix/Endocervix, ThinPr ep Imaging System with manual evaluation Document reviewed and electronically signed by: ? CRISTOPHER Stoll(ASCP) ? Report ??Date: 09/27/2012 14:30 HPV with Pap Test ? Date Ordered: ? 09/27/2012 ? Status: ?? Signed Out ?Date Complete: ? 09/29/2012 ? By: ??S ystem Interface ? Date Reported: ? 09/29/2012 ? Interpretation RESULT: Negative for HPV. No E6 or E7 mRNA is detected from HPV types 16,18,31,3 3,35, 39,45,51,52,56,58,59,66, and 68 by commercial front load driver media demond amplification. Comments Document reviewed and electronically signed by: ? System Interface ? Report date: 09/29/2012 By the signature above, the attending physician certif ies that he/she has personally conducted a gross and/or microscopic examin ation of the described specimens and rendered or confirmed the above diagnosi s. End of Report Specimen Performing Organization Address City/State/ZIP Code Phon e Number [facility] [address] [place] [address] SERVICES [facility] [address] [place] [address] documented in this encounter Visit Diagnoses Not on filedocumented in this encounter Care Teams Event Planning Intern Relationship Specialty Start Date End Date Md Oconnell MD PCP - General 03/21/10 documented as of this encounter
--- OUTSIDE RECORDS SUMMARY | 2021-12-20 01:40 | XMS_ITS | Encounter Summary ---
:1980 Author Organization [facility] Address [address] [place] [address] Care Team Providers Name Role Phone Md JEREMIAH Oconnell Primary Care Provider Unavailable Encounter Details Date Type Department Care Team Description 02/15/2020 Lab Requisition [facility] Outr Resulting Lab, Pathology & Laboratory Provider [facility] [address] [id number] Social History Tobacco Use Types Packs/Day Years Used Date Never Assessed Sex Assigned at Date Recorded Not on file documented as of this encounter Plan of Treatment Not on filedocumented as of this encounter Procedures Procedure Name Priority Date/Time Associated Diagnosis Comme nts CCP ANTIBODIES Routine 02/14/2020 16:40 Results f or this EDT procedure are i n the results section. LYME AB Routine 02/14/2020 16:40 Results for this EDT procedure are i n the results section. RHEUMATOID FACTOR Routine 02/14/2020 16:40 Result s for this EDT procedure are i n the results section. documented in this encounter Results LYME AB (02/14/2020 16:40 EDT) Pathologist Sig nature Lyme Ab NegativeComment: New Negative [facility] 3rd generation assay LABORATORY SERVICES in use 10/26/2019 Specimen Blood - Venous blood (substance) Performing Organization Address [facility]/ZIP Code Phon e Number [facility] [address] [place] [address] SERVICES RHEUMATOID FACTOR (02/14/2020 16:40 EDT) Pathologist Sig nature Rheumatoid Factor <8.6 <12.0 IU/mL [facility]OR[facility] SERVICES Specimen Blood - Venous blood (substance) Performing Organization Address [facility] Phon e Number [facility] [address] [place] [address] SERVICES CCP ANTIBODIES (02/14/2020 16:40 EDT) Pathologist Sig nature CCP Antibodies <2.5 <5.0 U/mL [facility] LABORAT ORY SERVICES Specimen Blood - Venous blood (substance) Performing Organization Address City/State/ZIP Code Phon e Number [facility] [address] [place] [address] SERVICES documented in this encounter Visit Diagnoses Not on filedocumented in this encounter Care Teams Packager Or Packer And Weigher Relationship Specialty Start Date End Date Md Oconnell MD PCP - General 03/21/10 documented as of this encounter
--- OUTSIDE RECORDS SUMMARY | 2021-12-20 01:40 | XMS_ITS | Encounter Summary ---
:1980 Author Organization [facility] [place] [address] Care Team Providers Name Role Phone Vlad Garcia MD Primary Care Provider Reason for Visit Reason Comments GI Problem Encounter Details Date Type Department Care Team Description 11/16/2012 Office Visit Gastroenterology at [facility] Kenny Gray Diarrhea (Primary [facility] Giorgio cox APRN Dx) [place] [address] [facility] [phone] [place] [address] Social History Tobacco Use Types Packs/Day Years Used Date Never Smoker Sex Assigned at Date Recorded Not on file documented as of this encounter Last Filed Vital Signs Vital Sign Reading Time Taken Comments Blood Pressure 106/60 11/16/2012 8:13 AM EDT Pulse 106 11/16/2012 8:13 AM EDT Temperature - - Respiratory Rate - - Oxygen Saturation - - Inhaled Oxygen Concentration - - Weight 57.2 kg (126 lb) 11/16/2012 8:13 AM EDT Height 157.5 cm (5' 2) 11/16/2012 8:13 AM EDT Body Mass Index 23.05 11/16/2012 8:13 AM EDT documented in this encounter Progress Notes Kenny Gray RN - 11/16/2012 8:22 AM EDT Section of Gastroenterology and Hepatology [address] [place] [id number] .Shanell Winn : 1980 Patient is here for further evaluation of gastrointestinal symptoms at the request of Vlad Garcia MD. HPI: Long hx of intermittent diarrhea. Currently and is not having sx. Can have mucus and blood in stool. Usually two stools per day. Associated gas, bloat, nausea, abdominal cramping, then will have loose stools. Not always do her sx resolve once able to empty. She will still have the urge to go. Can awake during the night with sx. Can experience incontinent episodes. Colonoscopy 2003, normal exam but no bx. Normal cbc, cmp. Triggers include coffee, sugars, oats, beans. Celiac serologies negative. When sx are severe she canlose weight. Will regain once sx subside. No chronic nsaids. Diet changes can be helpful. Has tried probiotics, uses what she can afford. Found probiotics to be helpful. No hx of reflux. No dysphagia, vomiting, odynophagia, chest pain, ent concerns. Wheat exacerbates sinus. Sugar similar sx and migraines. History Social History ??? Marital Status: Spouse Name: N/A Number of Children: N/A ??? Years of Education: N/A Occupational History ??? Not on file. Social History Main Topics ??? Smoking status: Never Smoker ??? Smokeless tobacco: Not on file ??? Alcohol Use: Not on file ??? Drug Use: Not on file ??? Sexually Active: Not on file Other Topics Concern ??? Not on file Social History Narrative ??? No narrative on file Medical History: non-contributory Surgical History: right ankle cyst removal, uterine polyps removed, sinus polyps removed Family History: several family members with ibs Allergies not on file Current outpatient prescriptions:PNV CMB#95/FERROUS FUMARATE/FA ( MULTIVITAMINS ORAL), Take 1 tablet by mouth daily., Disp: , Rfl: ; ASCORBATE CALCIUM (VITAMIN C ORAL), Take by mouth as needed., Disp: , Rfl: ; acetaminophen (TYLENOL) 500 mg tablet, Take 1,000 mg by mouth as needed., Disp: , Rfl: Review of Systems - Negative except General: Cardiac: Resp: GI: see above : MS: Neuro: Skin: Psyche: Sleep: Endo: Physical Exam: pt Impression: 1. At this time the patient is sx free and . I would like to hold on further testing and medication to avoid any potential harm to mom and baby. If sx return, pt will contact us. We will proceed with a colonoscopy and obtain colonic bx to rule out microscopic colitis. If normal then plan wouldbe fodmap diet, probiotics and consider an anti-spasmodic such as bentyl. I spent a total of 50 minutes face to face with this patient; 32 minutes were spent counseling the patient in the medical problems described above. Sincerely, Kenny Gray NP Section of Gastroenterology and Hepatology documented in this encounter Plan of Treatment Not on filedocumented as of this encounter Visit Diagnoses Diagnosis Diarrhea - Primary documented in this encounter Care Teams Electrical Tech Relationship Specialty Start Date End Date Vlad Garcia MD PCP - General 09/21/12 01/25/21 documented as of this encounter
--- OUTSIDE RECORDS SUMMARY | 2021-12-20 01:40 | XMS_ITS | Encounter Summary ---
:1980 Author Organization [facility] [place] [address] Care Team Providers Name Role Phone Vlad Garcia MD Primary Care Provider Encounter Details Date Type Department Care Team Description 05/06/2016 Hospital Encounter Laboratory [facility] [place] [address] Social History Tobacco Use Types Packs/Day Years Used Date Never Smoker Sex Assigned at Date Recorded Not on file documented as of this encounter Medications at Time of Discharge Medication Sig Dispensed Refills Start Date End Date PNV CMB#95/FERROUS Take 1 tablet by 0 FUMARATE/FA ( mouth daily. MULTIVITAMINS ORAL) ASCORBATE CALCIUM Take by mouth as 0 (VITAMIN C ORAL) needed. acetaminophen (TYLENOL) Take 1,000 mg by 0 500 mg tablet mouth as needed. Reported on 07/18/2016 Ibuprofen 200 mg Cap 0 06/26/2009 CIS Free Text Med - 0 06/26/200907/18 grapefruit seed extract ciprofloxacin (CIPRO) 500 500 MG = 1 Tablet(s) 0 06/26/2009 07/18/2016 mg tablet PO Twice daily lactobacillus acidophilus 0 06/26/2009 07/18/2016 Cap capsule documented as of this encounter Plan of Treatment Not on filedocumented as of this encounter Procedures Procedure Name Priority Date/Time Associated Comments Diagnosis PROTHROMBIN MUT Routine 05/06/2016 2:40 PM Result s for this EST procedure are i n the results section. TT Routine 05/06/2016 2:40 PM Results f or this EST procedure are i n the results section. PTT Routine 05/06/2016 2:40 PM Results f or this EST procedure are i n the results section. PT Routine 05/06/2016 2:40 PM Results f or this EST procedure are i n the results section. PLAT Routine 05/06/2016 2:40 PM Results f or this EST procedure are i n the results section. LANT Routine 05/06/2016 2:40 PM Results f or this EST procedure are i n the results section. FIBR Routine 05/06/2016 2:40 PM Results f or this EST procedure are i n the results section. THROMBOSIS SCREEN Routine 05/06/2016 2:40 PM Resu lts for this REPORT EST procedure are i n the results section. THS REPORT Routine 05/06/2016 2:40 PM Results f or this EST procedure are i n the results section. PROTEIN S ACTIVITY Routine 05/06/2016 2:40 PM Res ults for this EST procedure are i n the results section. APC RESISTANCE Routine 05/06/2016 2:40 PM Results for this EST procedure are i n the results section. BETA-2 GLYCOPROTEIN Routine 05/06/2016 2:40 PM Re sults for this ANTIBODIES EST procedure are i n the results section. PROTEIN C ACTIVITY Routine 05/06/2016 2:40 PM Res ults for this EST procedure are i n the results section. CARDIOLIPIN ANTIBODY Routine 05/06/2016 2:40 PM R esults for this SCREEN EST procedure are i n the results section. ANTITHROMBIN Routine 05/06/2016 2:40 PM Results f or this EST procedure are i n the results section. HOMOCYSTEINE TOTAL, Routine 05/06/2016 2:40 PM Re sults for this PLASMA EST procedure are i n the results section. documented in this encounter Results Thrombosis Screen Report (05/06/2016 2:40 PM EST) Component Value Ref Test Analysis Performed At [facility] Method Time Signature Thrombosis [id number] ?Location: [facility] Screen Report ACTON The signing pathologist has (i) examined the relevant preparation(s) for the [facility] specimen(s) and (ii) rendered or confirmed the diagnosis(es) . HOSPITAL LABORATORY . ? Throm bosis Screen DIAGNOSIS 1. 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 2. No evidence for the presence of additional common heredit paulina/acquired ?? hematologic risk factors associated with unexplained v enous or arterial ?? thromboembolism (see Discussion). Electronically signed by: ??Sabrina Tony MD Verified: ??05/20/2016 ?Hematopathologist ADDITIONAL STUDIES TEST ?(REFERENCE RANGE) ?RESULT Platelet count ?(145,000-357,000/uL) ?303,000/cumm PT ?(12.0-15.0) ? 14.0 sec PTT ? (25-35) ? 38 sec Fibrinogen ?(180-510) ?174 mg/dl Thrombin time ? (15-20) ? 17 sec APC resistance, ratio ? ( ??>2.00) ? 2.60 Antithrombin ?(80-120%) ? 97% Protein C* ?(67-156%) ? 143% Protein S* ?(M:66-139%)(F: 65-123%) ??86% Lupus anticoagulant ? (negative) ?Negative Anticardiolipin antibodies ?(IgG ?? <23 GPL) ?<23 GPL Anticardiolipin antibodies ?(IgM ?? <11 MPL) ?<11 MPL Oeai-3-znmxuhgdmhyo-1 antibo dies ??(IgG ?? <21 units) ? IgG ?? <21 units Ulym-1-cfaytsibxrny-1 antibo dies ??(IgM ?? <21 units) ? IgM ?? <21 units Homocysteine, random, plasma ?( ??</=15 u mol/L) ?7 umol/L Factor V Leiden Mutation ?(normal) ?Not performed Prothrombin (25934 G- ??>A) mutation (normal) ?Heterozygous * Functional assay for free Protein S and Protein C ??The screening test for activated protein C resistance is negative, thus there is no evidence for the presence o f factor V Leiden. ??The DNA assay for factor V Leiden is therefore not indicated and was not performed as part of is study. DISCUSSION The prothrombin [id number] gene variant is present in the heterozygous form in up to 2-3% of unselected [facility] individuals and is a common cause of hereditary thrombophilia. ??Heterozygo us PT [id number] is a mild risk factor for a first episode of venous thromboembolic disease (VTE) and possibly f or recurrent loss but does not appear to be a signif icant risk factor for recurrent VTE or for arterial thrombosis in adults under most circumstances. ??Most individuals with PT [id number] are asympto matic; however, the thrombotic risk conferred by PT J77439I is amplified in the presence of certain other risk factors ( ?e.g., smoking, obesity, contraceptives, pr egnancy). This individual may have additional as yet undefined genetic or enviro nmental risk factors for thrombosis. ??Consultation with a thrombosis specialist or [facility] counselor may be helpful for further characterizing specific thrombosis risk for this patient. CLINICAL INFORMATION 35 yo female. Clinical history not provided. Specimen (Source) Anatomical Collection Method Collection Time Re ceived Time Location / / Volume Laterality 05/06/2016 2:40 PM EST Resulting Agency Comment Spec In Lab / H Scott Saravia MD PATHOLOGY/CYTOLOGY ORDERABLE S Performing Organization Address City/State/ZIP Code Phon e Number [place] [phone] HOSPITAL LAB[address]ORY [address] PT Mut (05/06/2016 2:40 PM EST) Component Value Ref Test Analysis Performed At [facility] Range Method Time Signature Prothrombin Heterozygous CHAZ Mutation [facility] Prothrombin RESULT: HETEROZYGOUS POSITIV E for the Factor II 54257A>A variant in the 3' [facility] untranslated region of the prothrombin gene [facility] INTERPRETATION: The Factor II 18353H>A variant ([id number]:g.[id number]>A, [facility] [id number]) is associated with elevated prothrombin levels. Heterozygous LABORATORY positive results have been l inked with a 2- to 5-fold increased risk for venous thrombosis and increased risk for obstetric complications. 2 0210G>A heterozygosity has a most a modest effect on recurrence risk after initial treatment of a first VTE, and many studies have shown no i ncreased risk for recurrent venous thromboembolism. The pr esence or absence of other concomitant risk factors for thrombosis may modify the overall relative risk. Clinical correlation is recommended. METHODS: The region of interest in the Prothrombin gene (202 10G>A) is interrogated using a TaqMan allelic discrimination assay. [facility] DNA was isolated from the submitted peripheral blood specimen. Real- time PCR was performed to amplify a short region spanning the variant site, and genotyping was performed by allelic discrimination using a mixture of f luorescently labeled probes, one of which is specific for the reference sequence, the other specific for the variant allele. This test was developed and its performance jordan acteristics determined by the [facility] ([facility]) Laboratory at [facility]. It has not been cleared or approved by the FDA. The laboratory is regulated under CLIA as qualified to perform high-complexity testing. This yina t is used for clinical purposes. It should not be regarded as investigational or fo r research. Comment: [VERIFIED DATE]05.13.16 Verified By:Orlin Dawson MD Hematopathologist (Electronic Signature) Specimen Anatomical Collection Method Collection Time Receive d Time (Source) Location / / Volume Laterality Blood specimen Venous Draw / 05/06/2016 2:40 PM 2015 (specimen) Unknown EST 11:42 AM EST Resulting Agency Comment Spec In Lab / [facility] Scott Saravia MD HEMATOLOGY ORDERABLES Performing Organization Address City/[facility] Code Phon e Number [address] Protein S Activity (05/06/2016 2:40 PM EST) Analysis Performed At Patho logist Time Signature Protein S Act 86 65 - 123 % [facility] LABORATORY Specimen Anatomical Collection Method Collection Time Receive d Time (Source) Location / / Volume Laterality Blood specimen Venous Draw / 05/06/2016 2:40 PM 2015 8:41 (specimen) Unknown EST PM EST Resulting Agency Comment Spec In Lab / [facility] Scott Saravia MD HEMATOLOGY ORDERABLES Performing Organization Address City/[facility]/[place] [address] Protein C activity (05/06/2016 2:40 PM EST) Analysis Performed At Patho logist Time Signature Protein C Act 143 67 - 156 % [facility] LABORATORY Specimen Anatomical Collection Method Collection Time Receive d Time (Source) Location / / Volume Laterality Blood specimen Venous Draw / 05/06/2016 2:40 PM 2015 8:41 (specimen) Unknown EST PM EST Resulting Agency Comment Spec In Lab / [facility] Scott Saravia MD HEMATOLOGY ORDERABLES Performing Organization Address City/[facility]/[place] [address] Antithrombin (05/06/2016 2:40 PM EST) athologist Signature Antithrombin 97 80 - 120 % [facility] Specimen Anatomical Collection Method Collection Time Receive d Time (Source) Location / / Volume Laterality Blood specimen Venous Draw / 05/06/2016 2:40 PM 2015 8:41 (specimen) Unknown EST PM EST Resulting Agency Comment Spec In Lab / [facility] Scott Saravia MD HEMATOLOGY ORDERABLES Performing Organization Address [facility] Phon e Number [address] APC resistance (05/06/2016 2:40 PM EST) athologist Signature APC Resistance 2.60 >=2.00 [facility] Comment: Methodology: Clot-based This test was developed and its performa nce characteristics determined by [facility]. It h as not been cleared or approved by the FDA. The laboratory is regulated under [place] as qualified to perform high complexity testing. This test is used fo r clinical purposes. It should not be regarded as investigational or for resea [facility]. Specimen Anatomical Collection Method Collection Time Receive d Time (Source) Location / / Volume Laterality Blood specimen Venous Draw / 05/06/2016 2:40 PM 2015 8:41 (specimen) Unknown EST PM EST Resulting Agency Comment Spec In Lab / [facility] Scott Saravia MD HEMATOLOGY ORDERABLES Performing Organization Address City/[facility] Phon e Number [address] Beta-2 glycoprotein antibodies (05/06/2016 2:40 PM EST) athologist Signature B2GPI IgG <21 <=20 [facility](s) [facility] Comment: Ranges ?Units ----- ? ----- Normal ? <21 Low Positive (+) ? 21-50 Moderate Positive (+) ? 51- 100 High Positive (+) ?>1 00 B2GPI IgM <21 <=20 unit(s) [facility] LABORATORY Comment: Ranges ? Units ----- ?----- Normal ?<21 Low Positive (+) ? 21 -50 Moderate Positive (+) ?51-1 00 High Positive (+) ? >100 B2GPI Interp see note [facility] LABORATORY Comment: See Thrombosis Screen Report in eDH under Coagulation Reports Specimen Anatomical Collection Method Collection Time Receive d Time (Source) Location / / Volume Laterality Blood specimen Venous Draw / 05/06/2016 2:40 PM 2015 7:36 (specimen) Unknown EST AM EST Resulting Agency Comment Spec In Lab / [facility] Scott Saravia MD IMMUNOLOGY ORDERABLES Performing Organization Address City/State/[place] [address] Homocysteine Total, Plasma (05/06/2016 2:40 PM EST) P athologist Signature Homocyst Tot 7 <=15 [facility] LABORATORY Specimen Anatomical Collection Method Collection Time Receive d Time (Source) Location / / Volume Laterality Blood specimen Venous Draw / 05/06/2016 2:40 PM 2015 8:41 (specimen) Unknown EST PM EST Resulting Agency Comment Spec In Lab / [facility] Scott Saravia MD CHEMISTRY ORDERABLES Performing Organization Address City/State/ZIP [place] [address] Cardiolipin Antibody Screen (05/06/2016 2:40 PM EST) athologist Signature Cardiolipin IgG <23 <=22 [facility] Comment: Ranges ? GPL ------- ? ------ Normal ?<23 Low Positive ? 23-35 Moderate Positive ?36 -50 High Positive ? >5 0 Cardiolipin IgM <11 <=10 MPL unit(s) [facility] LAB[facility] Comment: Ranges ?MPL ----- ?----- Normal ?<11 Low Positive ? 11-20 Moderate Positive ?21 -30 High Positive ? >3 0 Specimen Anatomical Collection Method Collection Time Receive d Time (Source) Location / / Volume Laterality Blood specimen Venous Draw / 05/06/2016 2:40 PM 2015 7:36 (specimen) Unknown EST AM EST Resulting Agency Comment Spec In Lab / [facility] Scott Saravia MD IMMUNOLOGY ORDERABLES Performing Organization Address City/State/[place] [address] [facility] LAB[address]ORY Drive THS Report (05/06/2016 2:40 PM EST) Analysis Performed At Patho logist Time Signature THS Report See Comment [facility] Comment: See Thrombosis Screen Report [id number] under Hematopathology Reports. Specimen Anatomical Collection Method Collection Time Receive d Time (Source) Location / / Volume Laterality Blood specimen Venous Draw / 05/06/2016 2:40 PM 2015 8:41 (specimen) Unknown EST PM EST Resulting Agency Comment Spec In Lab / H Scott Saravia MD HEMATOLOGY ORDERABLES Performing Organization Address City/State/ZIP Code Phon e Number [address] Plat (05/06/2016 2:40 PM EST) P athologist Signature Platelets 303 145 - 357 [facility] x10(3)/[facility] LABORATORY Plat Immature 1.6 0.0 - 7.4 [facility] % % [facility] Comment: Limitation of the Immature Platelet Frac tion (IPF)-May be less reliable when the platelet count is less than 67j762/u L due to statistical imprecision. The IPF value provides an assessment of the Bone Marrow production status. ??It is useful in differentiating Thrombocyto penia caused by platelet destruction/consumption versus decreased production. It also helps to determine the imminent release of platelets and ca n be therefore a helpful parameter in Chemotherapy and Bone marrow transplant patients. ELEVATED IPF value: ?? When the bone marrow is in a state of over production such as when increased destruction and consumption are the unde rlying issue. ?? When the marrow is recovering post ch emotherapy or bone marrow transplant. LOW to NORMAL IPF value: ?? When the bone marrow in not respondin g and is in a decreased state of production. References: [employer] The Clinical Value of the Immature Platelet Fraction (IPF) in Cell Recovery Document Number 10-1143 10/2010 [employer] The Role of the Imm ature Platelet Fraction (IPF) in the Differential Diagnosis of Thrombocytopen ia, Document [id number] V009/26/13 P05/14 Specimen Anatomical Collection Method Collection Time Receive d Time (Source) Location / / Volume Laterality Blood specimen Venous Draw / 05/06/2016 2:40 PM 2015 8:41 (specimen) Unknown EST PM EST Resulting Agency Comment Spec In Lab / [facility] Scott Saravia MD HEMATOLOGY ORDERABLES Performing Organization Address City/[facility]/[place] [address] Lant (05/06/2016 2:40 PM EST) P athologist Signature Lupus Anticoag Neg Neg [facility] Specimen Anatomical Collection Method Collection Time Receive d Time (Source) Location / / Volume Laterality Blood specimen Venous Draw / 05/06/2016 2:40 PM 2015 8:41 (specimen) Unknown EST PM EST Resulting Agency Comment Spec In Lab / [facility] Scott Saravia MD HEMATOLOGY ORDERABLES Performing Organization Address [facility] [place] [address] TT (05/06/2016 2:40 PM EST) P athologist Signature Thrombin Time 17 15 - 20 [facility] LABORATORY Comment: A prolongation in the thrombin time (>20 seconds) may be indicative of hypofibrinogenemia or dysfibrinogenemia. The thrombin time will be prolonged, often markedly so, by the presence of he gabriele or direct thrombin inhibitors (argatroban, bivalirudin, dabigatran) in the specimen. Specimen Anatomical Collection Method Collection Time Receive d Time (Source) Location / / Volume Laterality Blood specimen Venous Draw / 05/06/2016 2:40 PM 2015 8:41 (specimen) Unknown EST PM EST Resulting Agency Comment Spec In Lab / [facility] Scott Saravia MD HEMATOLOGY ORDERABLES Performing Organization Address City/[facility]/ZIP Code Phon e Number [address] (ABNORMAL) FIBR (05/06/2016 2:40 PM EST) P athologist Signature Fibrinogen 174 (L) 180 - 510 [facility] mg/dL [facility] Comment: A fibrinogen level >100 mg/dL is adequat e for hemostasis in most patients without underlying bleeding disorders. Specimen Anatomical Collection Method Collection Time Receive d Time (Source) Location / / Volume Laterality Blood specimen Venous Draw / 05/06/2016 2:40 PM 2015 8:41 (specimen) Unknown EST PM EST Resulting Agency Comment Spec In Lab / [facility] Scott Saravia MD HEMATOLOGY ORDERABLES Performing Organization Address City/[facility]/[place] [address] (ABNORMAL) PTT (05/06/2016 2:40 PM EST) P athologist Signature PTT 38 (H) 25 - 35 sec [facility] Comment: The recommended therapeutic range for fu ll dose, unfractionated heparin at [facility] is 80 ? 114 seconds. The use of the anti-Xa (heparin) level rather than the PTT is recommended for monitoring anticoagul ation intensity in critically ill patients receiving unfractionated hepari n by continuous IV infusion. Specimen Anatomical Collection Method Collection Time Receive d Time (Source) Location / / Volume Laterality Blood specimen Venous Draw / 05/06/2016 2:40 PM 2015 8:41 (specimen) Unknown EST PM EST Resulting Agency Comment Spec In Lab / [facility] Scott Saravia MD HEMATOLOGY ORDERABLES Performing Organization Address City/[facility] [place] [address] PT (05/06/2016 2:40 PM EST) P athologist Signature PT 14.0 12.0 - 15.0 [facility] LABORATORY Comment: An INR <2.0 indicates adequate procoagul ant activity for hemostasis in most patients without underlying bleeding dis orders, though the INR may not adequately reflect hemostatic capacity i n patients with liver disease and synthetic impairment. The recommended ta rget INR range for therapeutic anticoagulation is 2.0 ? 3.0 for most applications, though lower and higher ranges may be appropriate depending on c linical circumstances. INR 1.0 0.9 - 1.1 [facility] LABORATORY Specimen Anatomical Collection Method Collection Time Receive d Time (Source) Location / / Volume Laterality Blood specimen Venous Draw / 05/06/2016 2:40 PM 2015 8:41 (specimen) Unknown EST PM EST Resulting Agency Comment Spec In Lab / H Scott Saravia MD HEMATOLOGY ORDERABLES Performing Organization Address City/State/[place] [address] documented in this encounter Visit Diagnoses Not on filedocumented in this encounter Care Teams Process Machine Operator Relationship Specialty Start Date End Date Vlad Garcia MD PCP - General 09/21/12 01/25/21 documented as of this encounter
[2021-12-20 12:57] LABS: Abs Immature Grans 0.03 10^3/uL (0.0-0.06); Absolute Basophil Count 0.04 10^3/uL (0.0-0.2); Absolute Eosinophil Count 0.23 10^3/uL (0.0-0.7); Absolute Lymphocyte Count 2.94 10^3/uL (1.2-3.4); Absolute Monocyte Count 0.45 10^3/uL (0.1-0.8); Absolute Neutrophil Count 4.46 10^3/uL (1.2-6.7); Basophils % 0.5; Eosinophils % 2.8; HGB 13.7 g/dL (11.2-15.7); Immature Grans % 0.4; Lymphocytes % 36.1; MCH 31.4 pg (27.0-33.0); MCHC 35.1 % (32.0-36.0); MCV 89 fL (80-95); MPV 9.3 fL (8.0-11.0); Monocytes % 5.5; Neutrophils % 54.7; Platelet Count 265 10^3/uL (130-400); RBC 4.36 10^6/uL (3.93-5.22); RDW 12.4 % (11.7-14.6); RDW-SD 40.7 fL; WBC 8.15 10^3/uL (4.4-10.8)
[2021-12-20 13:49] LABS: Iron 146 ug/dL (50-170); Total Iron Binding Capacity 357 ug/dL (250-450)
[2021-12-20 14:00] LABS: ALT 30 U/L (14-59); AST 14 U/L (15-37); Albumin 3.9 g/dL (3.4-5.0); Alkaline Phosphatase 47 U/L (46-116); Anion Gap 7.6 mmol/L (3-11); BUN 12 mg/dL (7-18); Bilirubin, Total 0.4 mg/dL (0.2-1.0); C-Reactive Protein 0.15 mg/dL (0.0-0.3); CO2 25.4 mmol/L (21.0-32.0); CREATININE 0.7 mg/dL (0.55-1.02); Calcium 8.6 mg/dL (8.5-10.1); Chloride 101 mmol/L (98-107); Creatine Kinase 72 U/L (26-192); FREE T4 0.93 ng/dL (0.76-1.46); Glucose 90 mg/dL (74-106); Potassium 3.6 mmol/L (3.5-5.1); Sodium 134 mmol/L (136-145); TSH 2.24 uIU/mL (0.36-3.74); Total Protein 7.7 g/dL (6.4-8.2)
[2021-12-20 14:38] LABS: Ferritin 51 ng/mL (8-252); T4 8.9 ug/mL (4.7-13.3); Vitamin B12 611 pg/mL (193-986)
[2021-12-20 22:29] LABS: T3, Total 132 ng/dL (97-169)
[2021-12-23 06:23] LABS: Vitamin D 25 Total 41.4 ng/mL (30-100)
[2021-12-23 09:31] LABS: Thyroperoxidase Antibody <28 U/mL (<=60)
[2021-12-23 09:33] LABS: Thyroglobulin Antibody <15 U/mL (<=60)
[2021-12-23 09:50] LABS: DHEA Sulfate 255 ug/dL (75-410)
== END 2021-12-20 01:37 | disposition home or self-care (01) ==
LOC: LBO 01:36
PROVIDERS: PCP Nurse Practitioner Family; Visit Provider Naturopath
DX: K58.0 Irritable bowel syndrome with diarrhea (principal); M62.81 Muscle weakness (generalized); R53.83 Other fatigue; E55.9 Vitamin D deficiency, unspecified
CPT/HCPCS: 36415; 80053; 82306; 82550; 82627; 82607; 82728; 82746; 83540; 83550; 84436; 84439; 84443; 84480; 84481; 85025; 86140; 86376; 86664; 86665; 86800

== ENCOUNTER 2021-12-25 17:47 | Outpatient (REF) | payer MEDICAID, SELFPAY ==
[2021-12-27 17:57] LABS: Calprotectin 80.9 mcg/g
== END 2021-12-25 17:48 | disposition home or self-care (01) ==
LOC: LBN 17:47
PROVIDERS: PCP Nurse Practitioner Family; Visit Provider Naturopath
DX: K58.0 Irritable bowel syndrome with diarrhea (principal); M62.81 Muscle weakness (generalized); R53.83 Other fatigue
CPT/HCPCS: 83630; 83993

== ENCOUNTER 2022-01-30 04:00 | Outpatient (CLI) | payer MEDICAID, SELFPAY ==
[2022-01-30 14:16] LABS: Kit/Specimen SENT
== END 2022-01-30 04:01 | disposition home or self-care (01) ==
LOC: LBO 04:00
PROVIDERS: PCP Nurse Practitioner Family; Visit Provider Naturopath
DX: R69 Illness, unspecified (principal)
CPT/HCPCS: 36415

== ENCOUNTER 2022-04-05 09:44 | Outpatient (CLI) | payer MEDICAID, SELFPAY ==
--- NOTE | 2022-04-05 09:30 | RT.EKG_ITS ---
APPROVED REPORT Exam: Resting ECG Reason for Exam: chest pain Patient Location: O HR:76 bpm ECG Measurements Heart Rate 76 AXIS LA 112 P 24 QRSd 92 QRS 58 QT 365 T 32 QTc 411 Conclusion Sinus rhythm...normal P axis, V-rate 50- 99 Borderline short LA interval...LA int <120mS Otherwise normal
== END 2022-04-05 09:45 | disposition home or self-care (01) ==
LOC: DI.CM 09:45
PROVIDERS: PCP Nurse Practitioner Family; Visit Provider Physician Assistant
DX: R07.9 Chest pain, unspecified (principal)
CPT/HCPCS: 93010

== ENCOUNTER 2022-08-24 10:13 | Emergency (ER) | payer MEDICAID, SELFPAY ==
[2022-08-24 10:28] VITALS: BP 119/88; PULSE 80; RESP 20; TEMP 37.1; O2SAT 98
--- NOTE | 2022-08-24 10:58 | ED.GENADUL_ITS ---
Discharge Plan Disposition Patient Disposition: Home Discharge Details Clinical Impression: Sebaceous cyst Primary Care Provider: Anjana Pierre ED Provider: Maria Victoria Duron Home Meds and New Rx's Prescriptions: New doxycycline hyclate 100 mg tablet 100 mg PO BID 7 Days Qty: 14 0RF Continued mesalamine [Lialda] 1.2 gram tablet,delayed release (DR/EC) 4.8 g PO DAILY omega 6-tuq-lxy-fish oil [Fish Oil] 60-90-500 mg capsule 1 cap PO DAILY folic acid 1 mg tablet 1 mg PO DAILY vitamin B complex [B Complex-Vitamin B12] Tablet 1 tab PO DAILY vitamin A 2,400 mcg capsule 2,400 mcg PO DAILY doxycycline hyclate 100 mg capsule 100 mg PO BID Qty: 20 0RF ascorbate calcium (vitamin C) 500 mg tablet 500 mg PO DAILY cholecalciferol (vitamin D3) 50 mcg (2,000 unit) capsule 50 mcg PO DAILY aswaganda tincture 0.5 tsp PO TID PRN Discharge Instructions Additional Instructions: Take the doxycycline as prescribed if you are still symptomatic in 2 to 3 days Warm compresses Ibuprofen and Tylenol as needed for pain Follow-up with surgery dermatology with persistent symptoms and return earlier should you have new or worsening complaints Referrals: Anjana Pierre, AIDE [Primary Care Provider] - Discharge Data Discharge Date/Time-TO BE ENTERED AT DEPARTURE: 08/24/22 12:52 Medical Decision Making 41-year-old female who presents with sebaceous cyst to the occipital region of her scalp Request incision and drainage, incision and drainage performed, sebaceous cyst with caseous material noted, referred back to primary care physician, may need outpatient referral to dermatology or surgery to remove capsule Afebrile and nontoxic No antibiotics indicated, however patient given Keflex as needed for return of redness or swelling in the next several days Warm compresses encouraged Return precautions reviewed patient expressed understanding Medical Records Medical records reviewed: Yes I reviewed the patient's medical records. HPI General Date/Time Provider Initiated Documentation: 08/24/22 10:26 . HPI Narrative: This 41-year-old female presents with report of cyst to the top of her scalp. Denies any history of diabetes. States its been worsening over the past couple days and describes it as a burning pain sensation. Denies any fever chills or parents of . Related Data Home Medications Medication Instructions Recorded Confirmed ascorbate calcium (vitamin C) 500 500 mg PO DAILY 06/11/20 08/24/22 mg tablet cholecalciferol (vitamin D3) 50 50 mcg PO DAILY 06/11/20 08/24/22 mcg (2,000 unit) capsule aswaganda 0.5 tsp PO TID PRN 11/02/20 08/24/22 doxycycline hyclate 100 mg capsule 100 mg PO BID #20 caps 04/05/22 04/05/22 folic acid 1 mg tablet 1 mg PO DAILY 04/05/22 08/24/22 mesalamine 1.2 gram tablet,delayed 4.8 g PO DAILY 04/05/22 08/24/22 release (Lialda) omega 6-hnd-vzk-fish oil 60 mg-90 1 cap PO DAILY 04/05/22 04/05/22 mg-500 mg capsule (Fish Oil) vitamin A 2,400 mcg capsule 2,400 mcg PO DAILY 04/05/22 04/05/22 vitamin B complex (B 1 tab PO DAILY 04/05/22 08/24/22 Complex-Vitamin B12 tablet) doxycycline hyclate 100 mg tablet 100 mg PO BID 7 days #14 tabs 08/24/22 Previous Rx's Medication Instructions Recorded doxycycline hyclate 100 mg capsule 100 mg PO BID #20 caps 04/05/22 doxycycline hyclate 100 mg tablet 100 mg PO BID 7 days #14 tabs 08/24/22 Allergies Allergy/AdvReac Type Severity Reaction Status Date / Time morphine Allergy Unknown Hives Verified 08/24/22 10:33 penicillin V Allergy Unknown Difficulty Verified 08/24/22 10:33 Breathing, Pruritis wheat Allergy Unknown Verified 08/24/22 10:33 Dust Allergy Unknown Uncoded 08/24/22 10:33 Raw Sugar Allergy Unknown Uncoded 08/24/22 10:33 General Stated Complaint: Cellulitis LONG: 4 PFSH All Active Problems (Updated 08/24/22 @ 11:01 by SHELLEY Jones) Sebaceous cyst (Acute) Chest pain (Acute) Low back pain (Acute) Polyarthralgia (Acute) IBS (irritable bowel syndrome) (Chronic) Colonoscopy 2004 - WNL; diarrhea predominant Medical History Fracture of glenoid process of right scapula (~05/2018) Surgical History H/O sinus surgery (~2000) 2000, to remove polyps History of surgery Uterine polyp removal per pt Family History Brother IBS (irritable bowel syndrome) Father Hypertension Hypercholesteremia Maternal Grandfather Heart disease Maternal Grandmother IBS (irritable bowel syndrome) Osteoporosis Cancer Skin Mother IBS (irritable bowel syndrome) Osteoarthritis Aunt Breast cancer Uncle Diabetes Social History Smoking/Tobacco Use Status: Never Smoking risk assessment performed?: Yes Alcohol Intake: never Drug use: Never Substance use type: does not use Caregiver/Support person: No Household members: spouse and children Number of Children: 2 Communication Needs: None Do you need help understanding health information?: Rarely 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 Pets and animals: Yes Pets and animals: cat(s) and farm animals Sexually active: Yes Do you think of yourself as: straight/heterosexual Current gender identity: female What is your relationship status?: How often do you talk on the phone with friends or family?: twice per week How often do you get together with friends or relatives?: once per week How often do you attend uatsdin or religion services?: 4 or more times per year Do you belong to any clubs or organized social groups?: no Panel score (0-1 are the most socially isolated patients): 3 What type of physical activity do you participate in: aerobic and regular exercise Duration: 15-30 minutes/day Frequency: 5-6 times per week Seatbelt use: always Helmet use: No Drive intox or ride w/intox feedmobile driver: No Working smoke detector in home: Yes Do you feel safe at home: Yes Do you feel safe in your relationship?: Yes Exam Narrative Exam Narrative: Patient appears well, she has approximately a dime sized sebaceous cyst with slight fluctuance and overlying erythema to the occipital region of her scalp, no crepitus Course Vital Signs Vital signs: Vital Signs Temperature 37.1 C 08/24/22 10:28 Pulse 80 08/24/22 10:28 Respiratory Rate 20 08/24/22 10:28 Blood Pressure 119/88 08/24/22 10:28 Pulse Oximetry 98 08/24/22 10:28 Temperature 37.1 C 08/24/22 10:28 Temperature Source Oral 08/24/22 10:28 Pulse 80 08/24/22 10:28 Respiratory Rate 20 08/24/22 10:28 Blood Pressure 119/88 08/24/22 10:28 Blood Pressure Position Sitting 08/24/22 10:28 Pulse Oximetry 98 08/24/22 10:28 Oxygen Delivery Method Room Air 08/24/22 10:28 Oxygen Flow Rate 0 08/24/22 10:28 Pain Level 3 08/24/22 10:28 Procedures Abscess I/D Site: Scalp Local Anesthetic: Lidocaine 1% Amount of anesthesia used (mL): 3 Technique: Needle Aspiration and Incised with #11 Blade Amount of fluid expressed (mL): 3 Irrigation: No Packing used?: None
== END 2022-08-24 12:52 | disposition home or self-care (01) ==
PROVIDERS: Emergency Provider Physician Assistant; PCP Nurse Practitioner Family
DX: L72.3 Sebaceous cyst (principal)
CPT/HCPCS: 10060

== ENCOUNTER 2022-09-09 13:42 | Outpatient (CLI) | payer MEDICAID, SELFPAY ==
[2022-09-09 13:26] LABS: Abs Immature Grans 0.01 10^3/uL (0.0-0.06); Absolute Basophil Count 0.05 10^3/uL (0.0-0.2); Absolute Eosinophil Count 0.13 10^3/uL (0.0-0.7); Absolute Lymphocyte Count 2.41 10^3/uL (1.2-3.4); Absolute Monocyte Count 0.37 10^3/uL (0.1-0.8); Absolute Neutrophil Count 3.23 10^3/uL (1.2-6.7); Basophils % 0.8; Eosinophils % 2.1; HCT 38.9 % (36.0-46.0); HGB 13.5 g/dL (11.2-15.7); Immature Grans % 0.2; Lymphocytes % 38.9; MCH 31.8 pg (27.0-33.0); MCHC 34.7 % (32.0-36.0); MCV 92 fL (80-95); MPV 9.6 fL (8.0-11.0); Platelet Count 266 10^3/uL (130-400); RBC 4.24 10^6/uL (3.93-5.22); RDW 12.5 % (11.7-14.6); RDW-SD 41.6 fL
[2022-09-09 15:13] LABS: ALT 18 U/L (14-59); AST 15 U/L (15-37); Albumin 3.6 g/dL (3.4-5.0); Alkaline Phosphatase 58 U/L (46-116); Bilirubin, Direct 0.1 mg/dL (0.0-0.2); Bilirubin, Total 0.3 mg/dL (0.2-1.0); Total Protein 7.4 g/dL (6.4-8.2)
[2022-09-09 15:16] LABS: C-Reactive Protein < 0.05 mg/dL (0.0-0.3)
[2022-09-11 22:31] LABS: Calprotectin <50.0 mcg/g
== END 2022-09-09 13:43 | disposition home or self-care (01) ==
LOC: LBO 13:42
PROVIDERS: PCP Nurse Practitioner Family; Visit Provider Internal Medicine Gastroenterology
DX: K51.311 Ulcerative (chronic) rectosigmoiditis with rectal bleeding (principal)
CPT/HCPCS: 36415; 80076; 83993; 85025; 86140

== ENCOUNTER 2022-10-07 18:41 | Outpatient (REF) | payer MEDICAID, SELFPAY | END 2022-10-07 18:42 | disposition home or self-care (01) | LOC: LBN 18:41 | PROVIDERS: PCP Nurse Practitioner Family; Visit Provider Family Medicine | DX: R30.0 Dysuria (principal) | CPT/HCPCS: 87086 ==

== ENCOUNTER 2023-02-13 12:40 | Outpatient (REF) | payer MEDICAID, SELFPAY ==
[2023-02-17 12:04] LABS: Calprotectin <50.0 mcg/g
== END 2023-02-13 12:41 | disposition home or self-care (01) ==
LOC: LBN 12:40
PROVIDERS: PCP Nurse Practitioner Family; Visit Provider Internal Medicine
DX: K51.311 Ulcerative (chronic) rectosigmoiditis with rectal bleeding (principal); R10.30 Lower abdominal pain, unspecified; K52.9 Noninfective gastroenteritis and colitis, unspecified
CPT/HCPCS: 83993

== ENCOUNTER 2023-02-17 02:16 | Outpatient (CLI) | payer MEDICAID, SELFPAY ==
[2023-02-17 12:54] LABS: Abs Immature Grans 0.01 10^3/uL (0.0-0.06); Absolute Basophil Count 0.04 10^3/uL (0.0-0.2); Absolute Eosinophil Count 0.06 10^3/uL (0.0-0.7); Absolute Lymphocyte Count 2.52 10^3/uL (1.2-3.4); Absolute Monocyte Count 0.42 10^3/uL (0.1-0.8); Absolute Neutrophil Count 5.12 10^3/uL (1.2-6.7); Basophils % 0.5; Eosinophils % 0.7; HCT 37.9 % (36.0-46.0); HGB 13.6 g/dL (11.2-15.7); Immature Grans % 0.1; Lymphocytes % 30.8; MCH 32.7 pg (27.0-33.0); MCHC 35.9 % (32.0-36.0); MCV 91 fL (80-95); MPV 9.6 fL (8.0-11.0); Monocytes % 5.1; Neutrophils % 62.8; Platelet Count 237 10^3/uL (130-400); RBC 4.16 10^6/uL (3.93-5.22); RDW 12.2 % (11.7-14.6); RDW-SD 40.9 fL; WBC 8.17 10^3/uL (4.4-10.8)
[2023-02-17 13:50] LABS: ALT 19 U/L (14-59); AST 16 U/L (15-37); Albumin 3.8 g/dL (3.4-5.0); Alkaline Phosphatase 56 U/L (46-116); BUN 14 mg/dL (7-18); Bilirubin, Total 0.4 mg/dL (0.2-1.0); C-Reactive Protein 0.11 mg/dL (0.0-0.3); CREATININE 0.9 mg/dL (0.55-1.02); Calcium 9.1 mg/dL (8.5-10.1); Chloride 104 mmol/L (98-107); Estimated GFR 82.37 (mL/min/1.73m2); Glucose 94 mg/dL (74-106); Potassium 3.4 mmol/L (3.5-5.1); Sodium 137 mmol/L (136-145); Total Protein 7.5 g/dL (6.4-8.2)
[2023-02-17 16:23] LABS: ESR (LRH) 3 mm/hr
== END 2023-02-17 02:17 | disposition home or self-care (01) ==
PROVIDERS: PCP Nurse Practitioner Family; Visit Provider Internal Medicine
DX: K51.311 Ulcerative (chronic) rectosigmoiditis with rectal bleeding (principal); R10.30 Lower abdominal pain, unspecified; K52.89 Other specified noninfective gastroenteritis and colitis
CPT/HCPCS: 36415; 80053; 85652; 85025; 86140

== ENCOUNTER 2023-10-09 14:07 | Outpatient (REF) | payer MEDICAID, SELFPAY ==
[2023-10-14 00:29] LABS: Calprotectin 70.1 mcg/g
== END 2023-10-09 14:08 | disposition home or self-care (01) ==
LOC: LBN 14:07
PROVIDERS: PCP Nurse Practitioner Family; Visit Provider Internal Medicine Gastroenterology
DX: K51.311 Ulcerative (chronic) rectosigmoiditis with rectal bleeding (principal)
CPT/HCPCS: 83993